=== PATIENT | male | born 1970 | race Caucasian/White ===

== ENCOUNTER 2018-09-04 15:38 | Emergency (ER) | payer OTHER ==
[~2018-09-04] VITALS: Ht 177.8 cm; Wt 97.1 kg
== END 2018-09-05 06:47 | disposition home or self-care (01) ==
LOC: ER 15:38
DX: K57.92 Diverticulitis of intestine, part unspecified, without perforation or abscess without bleeding (principal)

== ENCOUNTER 2018-12-14 16:15 | Inpatient (IN) | payer OTHER ==
[2019-01-17] MEDS ORDERED: GAS-X125 M1 PO (12:49)
[2019-01-17] MEDS ORDERED: OXYC1TAB9 PO (12:49)
[2019-01-17] MEDS ORDERED: HYOSCYAMINE0.125 M1 SL (12:49)
[2019-01-17] MEDS ORDERED: KETO10TA2 PO (12:50)
== END 2019-01-17 14:06 | disposition home or self-care (01) | DRG 331 ==
LOC: SURG 01-07 12:15 → SURH 01-14 06:07 → O/R 01-14 06:07 → SURG 01-14 07:00 → SURH 01-14 13:05 → SURG 01-14 13:35 → SURH 01-14 13:57
PROVIDERS: ADMIT Surgery
PROC: 0DJD8ZZ Inspection of Lower Intestinal Tract, Via Natural or Artificial Opening Endoscopic (ICD-10-PCS; 2019-01-14)
PROC: 4A12X4Z Monitoring of Cardiac Electrical Activity, External Approach (ICD-10-PCS; 2019-01-14)
PROC: 4A033R1 Measurement of Arterial Saturation, Peripheral, Percutaneous Approach (ICD-10-PCS; 2019-01-14)
PROC: 0DTN4ZZ Resection of Sigmoid Colon, Percutaneous Endoscopic Approach (ICD-10-PCS; principal; 2019-01-14 07:00)
DX: K57.32 Diverticulitis of large intestine without perforation or abscess without bleeding (principal); G47.33 Obstructive sleep apnea (adult) (pediatric)

== ENCOUNTER 2021-02-04 08:06 | Day surgery (SDC) | payer OTHER ==
[~2021-02-04 08:06] MED LIST: GAS-X125 M1 PO; HYOSCYAMINE0.125 M1 SL; KETO10TA2 PO; OXYC1TAB9 PO
== END 2021-02-04 13:05 | disposition home or self-care (01) ==
LOC: AMB-ENDOS 08:06
PROVIDERS: ATTEND Surgery
DX: K57.32 Diverticulitis of large intestine without perforation or abscess without bleeding (principal); Z20.822 Contact with and (suspected) exposure to COVID-19